=== PATIENT | female | born 1980 | race Caucasian/White ===

== ENCOUNTER → 2017-04-07 | Outpatient (CLI) | payer OTHER ==
[2017-04-07 11:10] LABS: EOS % 0.3 % (1.0-5.0); HEMATOCRIT 41.4 % (37.0-47.0); HEMOGLOBIN 13.6 g/dL (12.5-16.0); LYMPH# 1.9 (1.50-4.00); MEAN CELL VOLUME 88 fl (78-100); MEAN CORPUSCULAR HEMOGLOBIN 29 pg (27-31); MEAN CORPUSCULAR HGB CONC 33 g/dL (33-37); MEAN PLATELET VOLUME 9.5 fl (7.4-10.4); MONO # 0.5 (0.20-0.80); NEU # 3.7 (1.40-6.50); PLATELET COUNT 338 K/mm3 (130-400); RED BLOOD COUNT 4.69 M/mm3 (4.10-5.30); RED CELL DISTRIBUTION WIDTH 12.6 % (11.5-14.5); WHITE BLOOD COUNT 6.2 K/mm3 (4.8-10.8)
[2017-04-07 11:25] LABS: ALBUMIN 4.2 g/dL (3.5-5.0); BUN/CREATININE RATIO 13.6 (6.0-26.0); CALCIUM 9.7 mg/dL (8.4-10.2); POTASSIUM 3.7 mmol/L (3.6-5.0); TOTAL PROTEIN 7.8 g/dL (6.3-8.2)
[2017-04-07 11:38] LABS: URINE APPEARANCE CLOUDY; URINE BILIRUBIN NEGATIVE (NEGATIVE); URINE COLOR YELLOW; URINE GLUCOSE NEGATIVE (NEGATIVE); URINE KETONE 1+ (NEGATIVE); URINE PROTEIN(semi-quant) TRACE mg/dL (NEGATIVE); URINE UROBILINOGEN NORMAL (NORMAL)
[2017-04-07 11:39] LABS: URINE BLOOD 50 ery/uL (NEGATIVE); URINE LEUKOCYTE ESTERASE NEGATIVE (NEGATIVE); URINE MUCUS PRESENT (NOT PRESENT); URINE NITRATE NEGATIVE (NEGATIVE)
== END ==
LOC: LAB 10:57 → RAD 10:57
PROVIDERS: Physician Assistant Medical
DX: R10.11 Right upper quadrant pain (principal); R11.0 Nausea

== ENCOUNTER → 2017-04-14 | Outpatient (CLI) | payer OTHER ==
[2017-04-14 10:26] LABS: EOS % 0.2 % (1.0-5.0); HEMATOCRIT 38.5 % (37.0-47.0); HEMOGLOBIN 12.7 g/dL (12.5-16.0); LYMPH# 2.3 (1.50-4.00); MEAN CELL VOLUME 88 fl (78-100); MEAN CORPUSCULAR HEMOGLOBIN 29 pg (27-31); MEAN CORPUSCULAR HGB CONC 33 g/dL (33-37); MONO # 0.8 (0.20-0.80); NEU # 8.9 (1.40-6.50); PLATELET COUNT 415 K/mm3 (130-400); RED BLOOD COUNT 4.38 M/mm3 (4.10-5.30); RED CELL DISTRIBUTION WIDTH 12.6 % (11.5-14.5)
== END ==
LOC: LAB 10:10
PROVIDERS: Family Medicine
DX: R50.9 Fever, unspecified (principal)

== ENCOUNTER → 2017-04-24 | Outpatient (CLI) | payer OTHER | LOC: RAD 08:12 | DX: R10.2 Pelvic and perineal pain (principal) ==

== ENCOUNTER → 2019-04-20 | Outpatient (CLI) | payer OTHER ==
[2019-04-20 10:33] LABS: POTASSIUM 4.1 mmol/L (3.5-5.1)
[2019-04-20 10:34] LABS: CALCIUM 9.1 mg/dL (8.3-10.5)
== END ==
LOC: LAB 10:11
PROVIDERS: Family Medicine
DX: Z00.00 Encounter for general adult medical examination without abnormal findings (principal)

== ENCOUNTER → 2020-03-07 | Outpatient (CLI) | payer OTHER | LOC: PT 09:00 | DX: M76.892 Other specified enthesopathies of left lower limb, excluding foot (principal) ==

== ENCOUNTER 2020-04-16 15:30 | Outpatient (RCR) | payer OTHER | END 2020-04-16 16:00 | disposition home or self-care (01) | LOC: PT 15:30 | DX: Z98.890 Other specified postprocedural states (principal) ==